=== PATIENT | female | born 1995 | race African-American/Black ===

== ENCOUNTER 2018-03-04 12:56 | Emergency (ER) | payer MEDICAID ==
[~2018-03-04] VITALS: Ht 170.2 cm; Wt 63.2 kg
[~2018-03-04 12:56] MED LIST: NOCURR
[2018-03-04] MEDS ORDERED: FERR-89 PO (12:58)
[2018-03-04] MEDS ORDERED: LORA10TA7 PO (12:58)
[2018-03-04] MEDS ORDERED: A20IH1 IH (12:58)
[2018-03-04] MEDS ORDERED: CETYLPYRIDINIUM 120 ML MOUTHWASH PO ONE (15:45)
[2018-03-04] MEDS ORDERED: ONDANSETRON HCL 4 MG TABLET PO ONE (15:45)
[2018-03-04] MEDS ORDERED: BENZOCAINE/MENTHOL LOZENGE PO ONE (15:45)
[2018-03-04 16:06] LABS: INFLUENZA TYPE A NEGATIVE FOR TYPE A (NEGATIVE); INFLUENZA TYPE B NEGATIVE FOR TYPE B (NEGATIVE)
[2018-03-04 17:00] VITALS: BP 126/70
== END 2018-03-04 17:13 | disposition home or self-care (01) ==
LOC: EMS 12:56
DX: J11.1 Influenza due to unidentified influenza virus with other respiratory manifestations (principal); J45.909 Unspecified asthma, uncomplicated
CPT/HCPCS: 87804; 99284; Q0162